=== PATIENT | male | born 2000 | race Caucasian/White ===

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

== ENCOUNTER 2019-03-14 15:14 | Emergency (ER) | payer OTHER ==
--- NOTE | 2019-03-14 15:24 | PDOC ---
Rapid Medical Evaluation Chief Complaint: Wound Time Seen by Provider: 03/14/19 15:21 Medical Evaluation: Allergies Allergy/AdvReac Type Severity Reaction Status Date / Time No Known Allergies Allergy Verified 08/19/18 10:21 03/14/19 15:21 I have performed a brief in-person evaluation of this patient. The patient presents with a chief complaint of:worsen swelling of face - taking Bactrim x 3 days- no I and D done but face now swollen. Pertinent physical exam findings: Right facial erythma and swelling/ lesion to parietal area. I have ordered the following: cbc, cmp, BCx 2, The patient will proceed to the ED for further evaluation. Discharge Disposition - Diagnosis Facial cellulitis - Referrals - Patient Instructions - Post Discharge Activity
[2019-03-14 15:25] VITALS: BP 125/83; PULSE 109; TEMP 98; BMI 41.3
--- NOTE | 2019-03-14 15:47 | PDOC ---
History of Present Illness - General Chief Complaint: Wound Stated Complaint: SWOLLEN FACE Time Seen by Provider: 03/14/19 15:21 History Source: Patient - History of Present Illness Initial Comments: 03/14/19 15:43 Patient is a 18 year old male with no significant PMH who presents with R sided facial swelling x 1 week. Pt reports that symptoms began 1 week ago after a hair cut where he was nicked by the razor. Swelling has progressively worsened in his R temporal region. He denies any bleeding or oozing from the wound. He has mild associated pain in his R ear, denies pain with eye movement or changes in vision. Denies fevers, chills, nausea, or vomiting. Pt went to urgent care on Thursday where he was prescribed Bactrim 500mg BID. Pt has been taking antibiotics but states that the swelling has not improved. 03/14/19 15:49 Is this a multiple visit Asthma Patient?: No Timing/Duration: 1 week Severity: mild Past History - Past Medical History Allergies/Adverse Reactions: Allergies Allergy/AdvReac Type Severity Reaction Status Date / Time No Known Allergies Allergy Verified 03/14/19 17:45 Home Medications: Ambulatory Orders Cephalexin Monohydrate [Keflex -] 500 mg PO BID #7 capsule 03/14/19 COPD: No Psychiatric Problems: Yes ("MOOD DISORDER" ADHD) - Immunization History Immunization Up to Date: Yes - Psycho Social/Smoking Cessation Hx Smoking History: Never smoked Have you smoked in the past 12 months: No Information on smoking cessation initiated: No Hx Alcohol Use: No Drug/Substance Use Hx: No Substance Use Type: None Review of Systems - Review of Systems Able to Perform ROS?: Yes Is the patient limited Irish proficient: No HEENTM: Yes: Ear Pain Respiratory: No: Symptoms reported, See HPI, Cough, Orthopnea, Shortness of Breath, SOB with Exertion, SOB at Rest, Stridor, Wheezing, Productive cough, Hemoptysis, Other Cardiac (ROS): No: Symptoms Reported, See HPI, Chest Pain, Edema, Irregular Heart Rate, Lightheadedness, Palpitations, Syncope, Chest Tightness, Other ABD/GI: No: Symptoms Reported, See HPI, Abdominal Distended, Abd. Pain w/ defecation, Blood Streaked Bowels, Constipated, Diarrhea, Difficulty Swallowing , Nausea, Poor Appetite, Poor Fluid Intake, Rectal Bleeding, Vomiting, Indigestion, Abdominal cramping, Tarry Stools, Other : No: Symptoms Reported, See HPI, Burning, Dysuria, Discharge, Frequency, Flank Pain, Hematuria, Incontinence, Pain, Urgency, Testicular Mass, Testicular Swelling, Lesions, Testicular Pain, Other Musculoskeletal: No: Symptoms Reported, See HPI, Back Pain, Gout, Joint Pain, Joint Swelling, Muscle Pain, Muscle Weakness, Neck Pain, Joint Stiffness, Other *Physical Exam - Vital Signs Last Vital Signs Temp Pulse Resp BP Pulse Ox 98.0 F 109 H 20 125/83 99 03/14/19 15:22 03/14/19 15:22 03/14/19 15:22 03/14/19 15:22 03/14/19 15:22 - Physical Exam HEENT: positive: Lesions (R temporal facial swelling) ED Treatment Course - LABORATORY CBC & Chemistry Diagram: 03/14/19 16:15 03/14/19 16:15 Medical Decision Making - Medical Decision Making CBC wnl Order CT orbits 03/14/19 18:[address] reading results. If neg, will discharge with new abx (Keflex and topical bacitracitn). Discharge - Discharge Information Problems reviewed: Yes Clinical Impression/Diagnosis: Facial cellulitis Condition: Stable - Admission No - Additional Discharge Information Prescriptions: Cephalexin Monohydrate [Keflex -] 500 mg PO BID #7 capsule - Follow up/Referral - Patient Discharge Instructions Additional Instructions: Please take antibiotics as prescribed. Please follow up with your primary care provider in one week. Return to the emergency department if you experience fevers, chills, increased swelling or pain, or any other symptoms. - Post Discharge Activity
[2019-03-14 16:25] LABS: BASO % 0.7 % (0-2.0); EOS % 0.3 % (0-4.5); HEMATOCRIT 47.4 % (35.4-49); MCH 27.7 pg (25.7-33.7); MCHC 33.8 g/dl (32.0-35.9); MEAN CELL VOLUME 82.1 fl (80-96); MEAN PLT VOLUME 8.5 fl (7.5-11.1); MONO % 11.3 % (3.8-10.2); NEUT % 65.7 % (42.8-82.8); PLATELET COUNT 308 K/MM3 (134-434); RBC 5.78 M/mm3 (4.00-5.60); RDW 13.4 % (11.9-15.9); WHITE BLOOD COUNT 6.9 K/mm3 (4.0-10.0)
[2019-03-14 16:51] LABS: ALBUMIN 4.2 g/dl (3.4-5.0); BILIRUBIN,TOTAL 0.3 mg/dL (0.2-1); BLOOD UREA NITROGEN 15.2 mg/dL (7-18); CALCIUM 10.2 mg/dL (8.5-10.1); CREATININE 1.2 mg/dL (0.55-1.3); POTASSIUM 4.1 mmol/L (3.5-5.1); TOT PROT 8.2 g/dl (6.4-8.2)
--- NOTE | 2019-03-14 18:47 | PDOC ---
Documentation entered by Dyllan Alicea SCRIBE, acting as scribe for Christiane Nowak MD. Christiane Nowak MD: This documentation has been prepared by the Nixon burgos Daniel, SCRIBE, under my direction and personally reviewed by me in its entirety. I confirm that the documentation accurately reflects all work, treatment, procedures, and medical decision making performed by me. Attending Attestation - Resident Resident Name: Sylvia Stark - ED Attending Attestation I have performed the following: I have examined & evaluated the patient, The case was reviewed & discussed with the resident, I agree w/resident's findings & plan, Exceptions are as noted - HPI HPI: 03/14/19 16:21 The patient is a 18 year old male with no past medical history here today for evaluation of worsening facial pain and edema. The patient reports that he has had worsening right sided facial swelling and pain since he got a haircut and was nicked by the razor 1 week ago. He also notes some chills. Patient presented to an urgent care initially where he was prescribed bactrim which gave no relief. Patient denies headache, lightheadedness. Denies fever. Denies chest pain, shortness of breath. Denies nausea, vomiting, diarrhea, abdominal pain. Allergies: NKA - Physicial Exam PE: 03/14/19 18:44 Well-nourished well-developed 18-year-old male standing in the [place] waiting for his CAT scan in no acute distress Head no scalp lacerations or hematomas\ eyes alberto eomi Face there is a 3 cm eschar over localized wound that is slightly erythematous Eyes there is some periorbital swelling on the right and the lateral surface of the right eye adjacent to the skin wound neck supple Neuro alert and oriented x3, ambulatory no acute focal neuro deficits - Medical Decision Making 03/14/19 17:13 18-year-old male who sustained a laceration at a while getting a haircut Thursday and was placed on Bactrim twice daily but presents today because of pain and swelling 03/14/19 19:33 no fever,normal cbc plan will d/c home with antibiotics
[2019-03-14] MEDS ORDERED: CEPHALEXIN MONOHYDRATE 500 MG CAPSULE (UD) PO ONE (19:07)
--- NOTE | 2019-03-14 19:27 | PDOC ---
*Physical Exam - Vital Signs Last Vital Signs Temp Pulse Resp BP Pulse Ox 98.0 F 109 H 20 125/83 99 03/14/19 15:22 03/14/19 15:22 03/14/19 15:22 03/14/19 15:22 03/14/19 16:25 ED Treatment Course - LABORATORY CBC & Chemistry Diagram: 03/14/19 16:15 03/14/19 16:15 - ADDITIONAL ORDERS Additional order review: Laboratory Results 03/14/19 16:15 Sodium 137 Potassium 4.1 Chloride 107 Carbon Dioxide 21 Anion Gap 9 BUN 15.2 Creatinine 1.2 Est GFR (CKD-EPI)AfAm 100.99 Est GFR (CKD-EPI)NonAf 87.14 Random Glucose 94 Calcium 10.2 H Total Bilirubin 0.3 AST 32 ALT 108 H Alkaline Phosphatase 137 H Total Protein 8.2 Albumin 4.2 03/14/19 16:15 RBC 5.78 H MCV 82.1 MCHC 33.8 RDW 13.4 MPV 8.5 Neutrophils % 65.7 Lymphocytes % 22.0 D Monocytes % 11.3 H D Eosinophils % 0.3 Basophils % 0.7 Medical Decision Making - Medical Decision Making 03/14/19 19:25 18 y/o M with no significant PMH who presents with R sided facial swelling x 1 week with concern for cellulitis not improving with bactrim from urgent care. Patient reassessed and appears well and comfortable. No current complaints. VSS , AF -will followup with orbital CT -will dispo appropriately on keflex if negative findings 03/14/19 19:33 CT with right periorbital cellulitis without abscess or intraorbital pathology Will DC home with above plan Patient understands instructions and will f/u pcp Discharge - Discharge Information Problems reviewed: Yes Clinical Impression/Diagnosis: Facial cellulitis Condition: Stable Disposition: HOME - Additional Discharge Information Prescriptions: Cephalexin Monohydrate [Keflex -] 500 mg PO BID #7 capsule - Follow up/Referral - Patient Discharge Instructions Patient Printed Discharge Instructions: DI for Cellulitis -- Adult Additional Instructions: Please take antibiotics as prescribed. Please follow up with your primary care provider in one week. Return to the emergency department if you experience fevers, chills, increased swelling or pain, or any other symptoms. - Post Discharge Activity
== END 2019-03-14 20:44 | disposition home or self-care (01) ==
LOC: JER 15:14
DX: L03.213 Periorbital cellulitis (principal)
CPT/HCPCS: 36415; 70480-TC; 80053; 85025; 87040; 99283-25

== ENCOUNTER 2024-02-18 19:19 | Day surgery (SDC) | payer OTHER ==
[2024-02-18 20:12] LABS: HEMATOCRIT 47.3 % (35.4-49); HEMOGLOBIN 15.5 G/dL (11.7-16.9); MCH 28.7 pg (25.7-33.7); MCHC 32.7 g/dl (32.0-35.9); MEAN CELL VOLUME 87.8 fl (80-96); MEAN PLT VOLUME 8.8 fl (7.5-11.1); PLATELET COUNT 219.1 10^3/uL (134-434); RBC 5.39 10^6/uL (4.00-5.60); RDW 14.5 % (11.9-15.9); WHITE BLOOD COUNT 11.6 10^3/uL (4.0-10.8)
[2024-02-18 20:26] LABS: ALBUMIN 4.5 g/dl (3.4-5.0); BILIRUBIN,TOTAL 0.7 mg/dl (0.2-1); CALCIUM 9.5 mg/dl (8.5-10.1); POTASSIUM 3.9 mmol/L (3.5-5.1); TOT PROT 6.9 g/dl (6.4-8.2)
[2024-02-18] MEDS ORDERED: PIPERACILLIN/TAZOBACTAM 4.5 GM VIAL IVPB ONE (21:45)
[2024-02-18] MEDS: PIPERACILLIN/TAZOB 4.5 GM 4.5 GM in DEXTROSE 5%-WATER 100 ML IVPB ONE (21:56)
[2024-02-18 22:17] LABS: INR 0.92 (0.83-1.09); PROTHROMBIN TIME (PATIENT) 10.5 SEC (9.7-13.0)
[2024-02-18] MEDS: SODIUM CHLORIDE 1,000 ML IV SCH (22:45)
[2024-02-18] MEDS ORDERED: morphine SULFATE 4 MG/ML VIAL IVPUSH PRN (23:51)
[2024-02-19 00:43] VITALS: BMI 37.4
[2024-02-19 08:40] LABS: BASO % 0.4 % (0-2.0); EOS % 1.2 % (0-4.5); HEMOGLOBIN 14.9 GM/dL (11.7-16.9); LYMPH % 19.4 % (8-40); MCH 29.1 pg (25.7-33.7); MCHC 34.6 g/dl (32.0-35.9); MEAN CELL VOLUME 84.3 fl (80-96); MEAN PLT VOLUME 8.8 fl (7.5-11.1); MONO % 8.7 % (3.8-10.2); NEUT % 70.3 % (42.8-82.8); PLATELET COUNT 215 10^3/uL (134-434); WHITE BLOOD COUNT 5.9 K/mm3 (4.0-10.0)
[2024-02-19 08:52] LABS: ALBUMIN 4.3 g/dl (3.4-5.0); CALCIUM 9.5 mg/dl (8.5-10.1); CREATININE 0.9 mg/dl (0.6-1.3); POTASSIUM 4.2 mmol/L (3.5-5.1); TOT PROT 6.7 g/dl (6.4-8.2)
[2024-02-19] MEDS: PIPERACILLIN/TAZOB 3.375 GM 3.375 GM in DEXTROSE 5%-WATER - 50 ML IVPB SCH (09:54)
[2024-02-19] MEDS: ENOXAPARIN NA (PORCINE) 40 MG/0.4 ML DISP.SYRIN SQ SCH (09:59)
[2024-02-19] MEDS ORDERED: PIPERACILLIN/TAZOB 3.375 GM 3.375 GM in DEXTROSE 5%-WATER - 50 ML IVPB SCH ×2 (10:00→18:00)
[2024-02-19] MEDS ORDERED: PIPERACILLIN/TAZOB 3.375 GM 50 ML IVPB SCH (10:00)
[2024-02-19] MEDS ORDERED: BUPIVACAINE HCL/PF 0.5% (5MG/ML) 10 ML VIAL ONE (10:44)
[2024-02-19] MEDS ORDERED: ONDANSETRON 4 MG/2 ML VIAL IVPUSH PRN (11:01)
[2024-02-19] MEDS ORDERED: PROPOFOL 20 ML ONE ×2 (11:16→13:09)
[2024-02-19] MEDS ORDERED: MIDAZOLAM HCL 2 MG/2 ML SINGLE DOSE VIAL ONE (11:16)
[2024-02-19] MEDS ORDERED: ROCURONIUM BROMIDE 50 MG/5 ML SYRINGE ONE ×2 (11:16)
[2024-02-19] MEDS ORDERED: DEXMEDETOMIDINE HCL 200 MCG/2 ML IVPB ONE (11:21)
[2024-02-19] MEDS: ACETAMINOPHEN 1000 MG/100 ML BAG IVPB ONE (11:38)
[2024-02-19] MEDS ORDERED: HYDROmorphone HCL/PF 1 MG/ML VIAL ONE (12:19)
[2024-02-19] MEDS ORDERED: NEOSTIGMINE METHYLSULFATE 0.5 MG/1 ML - 10 ML MDV ONE (12:29)
[2024-02-19] MEDS ORDERED: oxyCODONE HCL 5 MG TABLET PO PRN (13:33)
[2024-02-19] MEDS ORDERED: ACETAMINOPHEN INJECTION 100 ML ONE (13:43)
[2024-02-19] MEDS: LACTATED RINGERS SOLUTION 1,000 ML IV SCH ×2 (14:40→19:05)
[2024-02-19] MEDS: oxyCODONE HCL 5 MG TABLET PO PRN (17:25)
[2024-02-19] MEDS: ACETAMINOPHEN 500 MG TABLET (FP) PO SCH (20:44)
[2024-02-19] MEDS ORDERED: KETOROLAC TROMETHAMINE 30 MG/1 ML VIAL IVPUSH PRN (22:00)
[2024-02-19] MEDS: HEPARIN NA (PORCINE) 5,000 UNITS/ML 1ML VIAL SQ SCH (23:02)
[2024-02-20] MEDS: oxyCODONE HCL 5 MG TABLET PO PRN (02:27)
[2024-02-20 08:43] LABS: HEMATOCRIT 48.3 % (35.4-49); HEMOGLOBIN 15.6 G/dL (11.7-16.9); MCH 28.3 pg (25.7-33.7); MCHC 32.2 g/dl (32.0-35.9); MEAN CELL VOLUME 87.9 fl (80-96); MEAN PLT VOLUME 9.1 fl (7.5-11.1); PLATELET COUNT 229.4 10^3/uL (134-434); RBC 5.49 10^6/uL (4.00-5.60); RDW 14.4 % (11.9-15.9); WHITE BLOOD COUNT 10.1 10^3/uL (4.0-10.8)
[2024-02-20 09:17] LABS: ALBUMIN 4.7 g/dl (3.4-5.0); BILIRUBIN,TOTAL 1.4 mg/dl (0.2-1); CREATININE 0.9 mg/dl (0.6-1.3); POTASSIUM 3.9 mmol/L (3.5-5.1); TOT PROT 7.4 g/dl (6.4-8.2)
[2024-02-20] MEDS: PIPERACILLIN/TAZOB 3.375 GM 3.375 GM in DEXTROSE 5%-WATER - 50 ML IVPB SCH (09:24)
[2024-02-20] MEDS: ENOXAPARIN NA (PORCINE) 40 MG/0.4 ML DISP.SYRIN SQ SCH (09:28)
[2024-02-20] MEDS ORDERED: PIPERACILLIN/TAZOB 3.375 GM 3.375 GM in DEXTROSE 5%-WATER - 50 ML IVPB SCH (10:00)
[2024-02-20 10:13] LABS: PLATELET ESTIMATE ADEQUATE
[2024-02-20 14:41] LABS: ALBUMIN 4.5 g/dl (3.4-5.0); BILIRUBIN,TOTAL 1.2 mg/dl (0.2-1); POTASSIUM 3.8 mmol/L (3.5-5.1); TOT PROT 7.1 g/dl (6.4-8.2)
[2024-02-20 15:25] VITALS: BP 136/67; PULSE 76; RESP 17; TEMP 98.1
== END 2024-02-20 15:27 | disposition home or self-care (01) ==
LOC: FER 19:19 → UNDOADMIN 22:25 → FM/S 22:25 → UNDOADMIN 02-19 00:04 → FM/S 02-19 00:04 → FASU 02-19 13:55 → FM/S 02-19 13:55 → FASU 02-20 15:27
DX: R10.11 Right upper quadrant pain (principal); K80.00 Calculus of gallbladder with acute cholecystitis without obstruction
CPT/HCPCS: 36415; 76705-TC; 80053; 81003; 83690; 85025; 85027; 85610; 86850; 86900; 86901; 94760; 99285-25; J0131; J1644

== ENCOUNTER 2024-07-29 11:25 | Emergency (ER) | payer OTHER ==
[2024-07-29 11:30] VITALS: BP 123/67; PULSE 92; RESP 18; TEMP 98.1; BMI 34.4
== END 2024-07-29 12:15 | disposition home or self-care (01) ==
LOC: JERFT 11:25
DX: S93.401A Sprain of unspecified ligament of right ankle, initial encounter (principal); W54.8XXA Other contact with dog, initial encounter; X50.1XXA Overexertion from prolonged static or awkward postures, initial encounter
CPT/HCPCS: 73610-TC-RT-FY; 73630-TC-RT-FY; 99283-25

== ENCOUNTER 2024-12-23 09:12 | Emergency (ER) | payer OTHER ==
[2024-12-23 09:22] VITALS: BP 138/85; PULSE 90; RESP 14; TEMP 97.5; BMI 34.9
[2024-12-23 12:33] LABS: HCV DIAGNOSTIC IN-HOUSE W/RFLX NON-REACTIVE (NONREACTIVE); HIV INTERPRETATION NEGATIVE (NEGATIVE)
== END 2024-12-23 09:54 | disposition home or self-care (01) ==
LOC: FER 09:12
DX: R21 Rash and other nonspecific skin eruption (principal); L29.9 Pruritus, unspecified; L53.9 Erythematous condition, unspecified
CPT/HCPCS: 36415; 86803; 87389; 99283-25